=== PATIENT | male | born 1995 | race Caucasian/White ===

== ENCOUNTER 2023-01-22 04:33 | Emergency (ER) | payer SELFPAY ==
[2023-01-22 04:39] VITALS: BP 127/70; PULSE 110; RESP 18; TEMP 36.4; O2SAT 96; BMI 24.5
--- NOTE | 2023-01-22 05:12 | CT_ITS ---
EXAM: CT HEAD WITHOUT INTRAVENOUS CONTRAST CLINICAL INDICATION: head injury TECHNIQUE: Multiple axial images were obtained of the head without intravenous contrast. This CT exam was performed using one or more of the following dose reduction techniques: automated exposure control, adjustment of the mA and/or kV according to patient size, and/or use of iterative reconstruction technique. RADIATION DOSE: CTDIvol = 44.99 mGy, DLP = 846.73 mGy-cm COMPARISON: No relevant prior studies available. FINDINGS: BRAIN AND EXTRA-AXIAL SPACES: Unremarkable. No intra- or extra-axial hemorrhage. No evidence of acute infarct. No intracranial mass or mass effect. There is preservation of the aguilar/white matter interface. Posterior fossa structures are unremarkable. Ventricles are appropriate for age. No hydrocephalus. Basal cisterns are patent. BONES/JOINTS: Unremarkable. No discrete lytic or blastic abnormalities. SINUSES: Unremarkable as visualized. Clear. MASTOID AIR CELLS: Unremarkable. Clear. ORBITS: Visualized globes, extraocular muscles, optic nerves and retrobulbar fat appear unremarkable. CT/Brain/Head without Contrast IMPRESSION: Negative head/brain CT without intravenous contrast. Electronically Signed: Brad Caldewll MD at 5:55 EDT ,
[2023-01-22] MEDS: Diphth,Pertuss(Acell),Tet Vac 0.5 ML Vial IM (05:27)
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
[2023-01-22 06:16] VITALS: BP 110/51; PULSE 98; RESP 18; O2SAT 99
== END 2023-01-22 06:16 | disposition home or self-care (01) ==
PROVIDERS: Emergency Provider Emergency Medicine; Visit Provider Emergency Medicine
DX: S06.0X0A Concussion without loss of consciousness, initial encounter (principal); S00.03XA Contusion of scalp, initial encounter; S50.811A Abrasion of right forearm, initial encounter; S50.812A Abrasion of left forearm, initial encounter; S50.311A Abrasion of right elbow, initial encounter; S50.312A Abrasion of left elbow, initial encounter; S40.211A Abrasion of right shoulder, initial encounter; S00.01XA Abrasion of scalp, initial encounter; V86.66XA Passenger of dirt bike or motor/cross bike injured in nontraffic accident, initial encounter; Z23 Encounter for immunization
CPT/HCPCS: 70450; 90471; 90715; 99284

== ENCOUNTER 2023-08-05 00:52 | Emergency (ER) | payer SELFPAY ==
[2023-08-05 00:52] VITALS: BP 108/65; PULSE 98; RESP 18; TEMP 36.3; O2SAT 98
--- NOTE | 2023-08-05 00:56 | ED.VIS.FALL ---
HPI HPI - Fall History of Present Illness Chief Complaint: Fall Narrative Narrative: Presented after a fall at work. When I went to evaluate the patient, patient was no longer in his room. Nursing staff reports that the patient did not want to take a drug test and left without telling anyone. Patient was only here for approximately 35 minutes. PFSH PFSH Medical History no medical history Home Medications NK 01/22/23 [History Last Taken Unknown] Allergy/AdvReac Type Severity Reaction Status Date / Time No Known Allergies Allergy Verified 08/05/23 00:58 Social History Smoking Status: Never smoker EXAM Physical Exam Const Vital Signs: 08/05/23 00:52 Temperature 97.4 F L Temperature Source Temporal Pulse Rate 98 Respiratory Rate 18 Blood Pressure 108/65 Blood Pressure Mean 79 Pulse Ox 98 Oxygen Delivery Method Room Air Discharge Plan Triage Chief Complaint: Fall ED Provider: Provider,Ed Physician Dx/Rx/DC Orders Clinical Impression: Fall Prescriptions: No Action NK Primary Care Provider: Care Physician,No Primary Referrals: Care Physician,No Primary [Primary Care Provider] - Disposition Disposition: LEFT WITHOUT BEING SEEN
--- NOTE | 2023-08-05 01:32 | ED.RN ---
PT NOT IN ROOM, LEFT WITHOUT BEING SEEN
--- OUTSIDE RECORDS SUMMARY | 2023-08-05 01:34 | XMS RPT_ITS | CCD ---
Author Name Unknown Address [address] [place] [address] Organization [facility] Care Team Providers Care Blind Installer Name Role Phone PHYSICIAN, NONE Unavailable Unavailable LOPEZ, VU Unavailable Unavailable LOPEZ, VU Unavailable Unavailable Results Test Name Value Interpretation Reference Range Facil ity Encounters Encounter Date Encounter Type Care Provider Facility Start: 02-19-2017 End: 02-20-2017 Ambulatory NONE PHYSICIAN Facility:A Payers Date Payer Category Payer Unknown [id number] Summary Purpose Family History No Family History Records FoundNo Family History Records FoundNo Family History Records Found Advance Directives No Advanced Directives Records FoundNo Advanced Directives Records FoundNo Advanced Directives Records Found Additional Source Comments (unrecognized sect ion and content) No Status Records FoundNo Status Records FoundNo Status Records Found INFORMATION SOURCE (unrecogn ized section and content) DATE CREATED AUTHOR AUTHOR'S ORGANIZ ATION [facility]05/2019 [facility] DATE CREATED AUTHOR AUTHOR'S ORGANIZ ATION 01/20/2022 [facility] FOR RECORDS PERTAINING TO PATIENTS WHO ARE OR HAVE BEEN ENROLLED IN A CHEMICAL DEPENDENCY/SUBSTANCEABUSE PROGRAM, SOME INFORMATION MAY BE OMITTED. This clinical summary was aggregated from multiple sources. Caution should be exercised in using it in the provision of clinical care. This summary normalizes information from multiple sources, and as a consequence, information in this document may materially change the coding, format and clinical context of patient data. In addition, data may be omitted in some cases. CLINICAL DECISIONS SHOULD BE BASED ON THE PRIMARY CLINICAL RECORDS. [employer] provides no warranty or guarantee of the accuracy or completeness of information in this document.
== END 2023-08-05 01:30 | disposition left against medical advice (07) ==
DX: Z53.21 Procedure and treatment not carried out due to patient leaving prior to being seen by health care provider (principal)
CPT/HCPCS: 99282

== ENCOUNTER 2023-08-10 05:58 | Emergency (ER) | payer BC, SELFPAY ==
[2023-08-10 06:00] VITALS: BP 139/78; PULSE 92; RESP 16; TEMP 37; O2SAT 100; BMI 23.3
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
[2023-08-10 06:10] VITALS: BP 124/76; BP 126/90; BP 127/80; PULSE 63; PULSE 83; PULSE 85
--- OUTSIDE RECORDS SUMMARY | 2023-08-10 06:29 | XMS RPT_ITS | CCD ---
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 Name Role Phone PHYSICIAN, NONE Primary Care Unavailable MARIEL EDMONDSON Attending Unavailable PHYSICIAN, NONE Primary Care Physician Unavailab le Medications Current Medications Medication Drug Class(es) Dates Sig (Normalized) Sig (Original) Pharmacy See ORDER COMMENTS (1 source) Start: 02-19-2017 Pharmacy See ORDER COMMENTS Start Date: 02/19/17 Status: Ordered Problems Problem Classification Problem Date Documented Da te Episodic/Chronic Residual codes; unclassified (1 source) Edema 02-19-2017 Episodic Results Test Name Value Interpretation Reference Range Facil ity Vital Signs Date Time Vital Sign Value Performing Clinician Faci lity 08-05-2023 07:13-0500 Diastolic Blood Pressure Non-Invasive 72 mm[Hg] DR MARIEL EDMONDSON MD [facility] 08-05-2023 07:13-0500 Heart rate 76 /min DR MARIEL EDMONDSON MD [facility] 08-05-2023 07:13-0500 Respiratory rate 16 /min DR MARIEL EDMONDSON MD [facility] 08-05-2023 07:13-0500 Systolic Blood Pressure Non-Invasive 141 mm[Hg] DR MARIEL EDMONDSON MD [facility] 08-05-2023 02:55-0500 Body temperature 97.88 [degF] DR MARIEL EDMONDSON MD [facility] 08-05-2023 02:55-0500 Body weight 66.[address] MARIEL EDMONDSON MD [facility] 08-05-2023 02:55-0500 Diastolic Blood Pressure Non-Invasive 76 mm[Hg] DR MARIEL EDMONDSON MD [facility] 08-05-2023 02:55-0500 Heart rate 101 /min DR MARIEL EDMONDSON MD [facility] 08-05-2023 02:55-0500 Respiratory rate 18 /min DR MARIEL EDMONDSON MD [facility] 08-05-2023 02:55-0500 Systolic Blood Pressure Non-Invasive 130 mm[Hg] DR MAREIL EDMONDSON MD [facility] Encounters Encounter Date Encounter Type Care Provider Facility Start: 08-05-2023 End: 08-05-2023 Emergency department patient visit NONE PHYSICIAN Facility:A Start: 08-05-2023 End: 08-05-2023 Emergency department patient visit DR MARIEL EDMONDSON MD [facility] Procedures Date Procedure Procedure Detail Performing Clinician None (qualifier value) DR GAURAV EDMONDSON MD Payers Date Payer Category Payer Self-pay 1996 Unknown [id number] Social History Date Type Detail Facility Start: 10-26-2020 Tobacco smoking status Smoker (findi ng) [facility] Sex Assigned At Sex [facility] Functional Status Date Assessment Result Facility 08-05-2023 Functional Status Awake [facility] 08-05-2023 Functional Status Repositions self [facility] Mental Status Date Assessment Result Facility 08-05-2023 Mental Status Orientation Oriented x 4 [facility] 08-05-2023 Mental Status [facility] Discharge instructions 08-05-2023 Note Date & Type Note Facility 08-05-2023 Hospital Discharg e instructions Patient Education 08/05/2023 07:25:29 Blunt Abdominal Trauma Blunt Abdominal Trauma Your abdomen extends from just below your chest to the top of your pelvis. It contains a number of vital organs, including your spleen, liver, pancreas, and stomach. These organs can be injured by the impact from a car accident or fall. Injury from a force that doesn t break your skin to penetrate your body is known as blunt trauma. When to go to the emergency room (ER) Injury to your abdomen can be very serious. For that reason, a person with blunt abdominal trauma should be taken to the ER by trained medical personnel in an ambulance. The effects of blunt trauma often don t appear right away, so it s important to see a healthcare provider after a hard blow to the abdomen, even if you feel OK. What to expect in the ER Your breathing and pulse will be checked. You also will be examined carefully for injuries. Severe trauma may need surgery right away. Otherwise you will be watched closely for a time. You may also need to have one or more tests to find out the extent of your injuries. These may include: Blood or urine tests need a sample of the blood or urine to be taken and checked for problems. X-rays use radiation to take pictures of inside the body. It's mostly used to look for broken bones. CT scan combines X-rays and a computer. This gives a detailed picture that can show problems with organs. These include your kidneys, spleen, liver, and stomach. Ultrasound uses radio waves to make images of the organs in your abdomen. It can also rapidly identify internal bleeding if present. Diagnostic peritoneal lavage (DPL) involves inserting a needle and plastic catheter through the skin into your abdomen to check fluid from your abdomen for signs of blood (internal bleeding).This procedure is rarely, if ever, used anymore. Based on the test results, you may be admitted to the hospital. Or you may have further care in the ER. When to call your healthcare provider After treatment, call your healthcare provider right away if you notice any of these symptoms: Increased pain or swelling in your abdomen Nausea or vomiting Call 911 Call 911 or get immediate medical care if any of the following occur: Weakness or fainting Blood in your stool or urine 9927-2564 [employer]. [address] [place] [address], [place] [address]. All rights reserved. This information is not intended as a substitute for professional medical care. Always follow your healthcare professional's instructions. Follow Up Care 08/05/2023 02:55:04 With:[facility] ([facility]) Address: [address] [place] [phone] [facility] (1) When:2-4 days Comments:Return to ED if symptoms worsen With:NONE PHYSICIAN Address:Unknown When:2-4 days [facility] Emergency department Discharge summary 08-05-2023 Note Date & Type Note Facility 08-05-2023 Emergency departm ent Discharge summary Discharge Instructions Thank you for allowing [facility] to assist you with your healthcare needs. The following is important discharge information regarding your hospital visit. Diagnosis from Today's Visit Abdominal pain after fall 3ft from ladder Contusion of anterior abdominal wall What to Do Next Instructions from Your Care Team No qualifying data available. Post Acute Orders No qualifying data available. You Need to Schedule the Following Appointments Follow Up with [facility] ([facility]) When Within 2-4 days Why: Return to ED if symptoms worsen Where: [address] [place] [phone] [employer] (1) Follow Up with NONE PHYSICIAN When Within 2-4 days Allergies NKA Medications Please ask your primary doctor or pharmacist before taking any other medication not listed, including over the counter drugs, herbal medications, vitamins and or supplements as they may interact with your home medications. What When Instructions Last Dose Unchanged .PharmacyCommunication (Pharmacy See ORDER COMMENTS) Please take this list to your next doctor s visit. Bring all medications you take, including over the counter medications, herbals and other supplements with you to your doctor s visit. Patients and families are reminded to discard old lists and to update any records with all medication providers or retail pharmacies. Education Materials Blunt Abdominal Trauma Your abdomen extends from just below your chest to the top of your pelvis. It contains a number of vital organs, including your spleen, liver, pancreas, and stomach. These organs can be injured by the impact from a car accident or fall. Injury from a force that doesn t break your skin to penetrate your body is known as blunt trauma. When to go to the emergency room (ER) Injury to your abdomen can be very serious. For that reason, a person with blunt abdominal trauma should be taken to the ER by trained medical personnel in an ambulance. The effects of blunt trauma often don t appear right away, so it s important to see a healthcare provider after a hard blow to the abdomen, even if you feel OK. What to expect in the ER Your breathing and pulse will be checked. You also will be examined carefully for injuries. Severe trauma may need surgery right away. Otherwise you will be watched closely for a time. You may also need to have one or more tests to find out the extent of your injuries. These may include: Blood or urine tests need a sample of the blood or urine to be taken and checked for problems. X-rays use radiation to take pictures of inside the body. It's mostly used to look for broken bones. CT scan combines X-rays and a computer. This gives a detailed picture that can show problems with organs. These include your kidneys, spleen, liver, and stomach. Ultrasound uses radio waves to make images of the organs in your abdomen. It can also rapidly identify internal bleeding if present. Diagnostic peritoneal lavage (DPL) involves inserting a needle and plastic catheter through the skin into your abdomen to check fluid from your abdomen for signs of blood (internal bleeding).This procedure is rarely, if ever, used anymore. Based on the test results, you may be admitted to the hospital. Or you may have further care in the ER. When to call your healthcare provider After treatment, call your healthcare provider right away if you notice any of these symptoms: Increased pain or swelling in your abdomen Nausea or vomiting Call 911 Call 911 or get immediate medical care if any of the following occur: Weakness or fainting Blood in your stool or urine [phone] [employer]. [address] [place] [address]. All rights reserved. This information is not intended as a substitute for professional medical care. Always follow your healthcare professional's instructions. Additional Information VACCINATE! IT SAVES LIVES! Members of the community who have not yet received the COVID-19 vaccine and would like to receive it can visit one of [facility] vaccine clinics. There are many vaccine clinic locations within the [facility]. For locations and available times, please visit www.gettheshot.coronavirus.[place].gov/. It is important to note that some COVID mobile vaccine clinics are held outdoors and may be canceled in rainy or stormy conditions. To learn more about pediatric vaccinations (ages 5-11), we invite you to visit the [facility] webpage. [email or web address].[email or web address].org/pages/ 4920-Iuisk-Yjtwpjretlt-Frequently-Ask ed-Questions.html To learn more about the COVID-19 vaccine, we invite you to visit the CDC website for a list of frequently asked questions. https://www.cdc.gov/coronavirus/2019- ncov/vaccines/faq.html [email or web address] Patient Portal Access Instructions: Stay connected with your healthcare team and access your personal medical information anytime with the [email or web address] Patient Portal. If you would like a full copy of your medical records please contact the [facility] Medical Records Department Saturday through Saturday between 8a.m. and 4:30p.m. Please follow the directions below to access the portal: 1.Access the email account you provided upon registration to the [facility].2.Look for an invitation email from [facility].3.Open the email and access the invitation link: Accept Invitation to [email or web address].Fill in the required caballero to create your account. Sign into [email or web address].[email or web address] with your username and password that you created in the above steps to stay up to date. You can then view a summary of results, a summary of your visits, and the ability to download your summaries to your computer or send the information securely to a physician. Remember that your healthcare information is confidential, so carefully consider who you will allow to register on the [email or web address] Patient Portal for access to your information. You can also access the [email or web address] Patient Portal on the [employer]. Simply click on Health Records under Health Data and then click on the [employer] logo. HOW TO SAFELY DISPOSE OF PRESCRIPTION MEDICATIONS Please use one of the following methods to safely dispose of your unused medications. 1.Use a drug disposal kit: the drug disposal pouch allows you to safely discard your old and unused drugs. Ask your nurse to give you one when you are discharged.2.Visit a local take-back location: Many local pharmacies and police departments have programs that collect old and unwanted prescription drugs. Call your local pharmacy or go to http://liana/4D6Is1d to find one close to you.3.Make use of household items: Use cat litter or old coffee grounds to dispose medications if other options are not available. Mix your drugs with these household products, seal them in an airtight container and throw it into the garbage. Call [facility]: [phone] to be sure your drugs can be disposed of in this way. Some medicines may require a different approach.4.Never flush your medications down the toilet. IF YOU HAVE BEEN PRESCRIBED AN OPIOIDS FOR PAIN If you have been prescribed an opioid (such as hydrocodone, oxycodone or morphine), it is critical to understand the possible side effects and risks of opioid pain medications. Even when taken as directed, opioids can have several side effects including: Tolerance, meaning you might need to take more of a medication for the same pain relief. Nausea, vomiting and/or constipation. Sleepiness, dizziness, dry mouth, confusion, depression or itching. Physical dependence, meaning you have withdrawal symptoms when a medication is stopped ? this can develop within a few days. KNOW YOUR RESPONSIBILITIES It is important to know exactly how much and how often to take the opioid pain medications you are prescribed. Never take opioids in higher amounts or more often than prescribed. Do not combine opioids with alcohol or other drugs that cause drowsiness, such as benzodiazepines, also known as benzos, including diazepam and alprazolam, muscle relaxants or sleep aids. Never sell or share prescription opioids. This is illegal. Store opioids in a secure place and out of reach of others (including children, family, friends and visitors). The last page(s) of this document has been signed and retained as a CHART COPY Signatures Patient Education Materials Blunt Abdominal Trauma Medication Leaflets My discharge plan and instructions have been reviewed and explained to me and IMARQUIS BRANDON L understand my current condition and have read and understand these discharge instructions. I have received a written copy of the plan/instructions. If I have questions, I am aware that I should contact my doctor. 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 Multiplanar reformatted images are provided for review. Automated exposure control, iterative reconstruction, and/or weight based adjustment of the mA/kV was utilized to reduce the radiation dose to as low as reasonably achievable. COMPARISON: None. HISTORY: ORDERING SYSTEM PROVIDED HISTORY: Reason for Exam: fall from ladder, landed on stomach, abd pain abdominal pain FINDINGS: Lower Chest: No acute findings. Lower ribs are intact. Organs: The liver, biliary tree, pancreas, spleen, adrenal glands, and kidneys show no sign of traumatic injury or acute abnormality. There is a punctate nonobstructing stone in the right kidney and measures 2 mm. No ureteral stone or obstruction is present. GI/Bowel: There is no hemoperitoneum or free intraperitoneal air. Intestinal structures show no sign of acute abnormality. Pelvis: Urinary bladder is intact and has a normal appearance. There is no pelvic hematoma or other abnormal fluid collection. Peritoneum/Retroperitoneum: There is no retroperitoneal hematoma. Abdominal aorta and inferior vena cava are normal. Bones/Soft Tissues: Lumbar spine alignment is normal with no visible fracture. There is no pelvic or hip fracture. IMPRESSION: No acute intra-abdominal or pelvic abnormality. Punctate nonobstructing right renal stone. Interpreted by: Azar Prieto MD Preliminary Report By: Azar Prieto MD Electronically signed By Azar Prieto MD Dictated Date: 08/05/2023 6:36:02 AM Prelim Date: 08/05/2023 6:38:28 AM Sign Date: 08/05/2023 6:38:28 AM Ordering Provider: LUIS ARMANDO PANG [facility] Evaluation + Plan note Note Date & Type Note Facility Evaluation + Plan note No data available for this section [facility] Summary Purpose Family History No Family History Records FoundNo Family History Records FoundNo Family History Records Found No data available for this section Advance Directives No Advanced Directives Records FoundNo Advanced Directives Records FoundNo Advanced Directives Records Found Additional Source Comments (unrecognized sect ion and content) No Status Records FoundNo Status Records FoundNo Status Records Found INFORMATION SOURCE (unrecogn ized section and content) DATE CREATED AUTHOR AUTHOR'S ORGANIZ ATION 01/20/2022 [facility] nter DATE CREATED AUTHOR AUTHOR'S ORGANIZ ATION 08/05/2023 [facility] ([place]) Patient Care team informatio n (unrecognized section and content) Care Team Personnel Name: PHYSICIAN, NONE Position: Physician Member Role: Primary Care Physician Name: MD MARIEL EDMONDSON MD Position: ED Physician Member Role: Attending Physician Address: Address: [address] Name: LUIS ARMANDO PANG PA-C Position: [facility] 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 [facility] [facility]. provides no warranty or guarantee of the accuracy or completeness of information in this document.
[2023-08-10 06:33] VITALS: BP 119/87; PULSE 82
== END 2023-08-10 06:34 | disposition home or self-care (01) ==
PROVIDERS: Emergency Provider Emergency Medicine; Visit Provider Emergency Medicine
DX: R42 Dizziness and giddiness (principal); F17.290 Nicotine dependence, other tobacco product, uncomplicated; Y92.410 Unspecified street and highway as the place of occurrence of the external cause; V47.6XXA Car passenger injured in collision with fixed or stationary object in traffic accident, initial encounter
CPT/HCPCS: 99282

== ENCOUNTER 2023-11-10 13:03 | Emergency (ER) | payer BC, SELFPAY ==
[2023-11-10 13:04] VITALS: BP 139/91; PULSE 71; RESP 16; TEMP 36.6; O2SAT 99; BMI 22.3
--- NOTE | 2023-11-10 14:11 | CT_ITS ---
EXAM: CT CERVICAL SPINE WITHOUT INTRAVENOUS CONTRAST CLINICAL INDICATION: remote injury, BUE numbness, inc pain TECHNIQUE: Helically acquired images were obtained of the cervical spine without intravenous contrast. 2D reformatted images were reviewed. This CT exam was performed using one or more of the following dose reduction techniques: automated exposure control, adjustment of the mA and/or kV according to patient size, and/or use of iterative reconstruction technique. RADIATION DOSE: CTDIvol = 18.84 mGy, DLP = 405.85 mGy-cm COMPARISON: No relevant prior studies available. FINDINGS: VERTEBRAE: Unremarkable. No fracture. No traumatic subluxation. No discrete lytic or blastic abnormality. Normal alignment. Normal craniocervical junction and cervicothoracic junction. DISCS/SPINAL CANAL/NEURAL FORAMINA: Unremarkable. Disc heights are preserved. No critical stenosis. SOFT TISSUES: Unremarkable. No prevertebral soft tissue swelling. LYMPH NODES: Unremarkable. No cervical adenopathy. LUNG APICES: Unremarkable as visualized. Clear. CT/Spine Cervical without Contras IMPRESSION: No evidence of acute cervical spinal fracture or spondylolisthesis. Electronically Signed: Thien Swann MD at 15:15 EDT ,
--- NOTE | 2023-11-10 14:11 | CT_ITS ---
STUDY: CT BRAIN WITHOUT CONTRAST REASON FOR EXAM: Male, 28 years old. headache, vertigo TECHNIQUE: Transaxial CT imaging of the brain was performed without administration of intravenous contrast material. Individualized dose optimization techniques were used for this CT. COMPARISON: 01-22-23 FINDINGS: Normal calvarium. Normal soft tissues. Normal size ventricles and extra-axial spaces for the patient''s age. Normal white matter tracts of the cerebral hemispheres. Normal basal ganglia and thalami. Normal brainstem. Normal cerebellum. There is no intracranial hemorrhage. There are no findings of an acute ischemic infarction. There is sinus disease. ASPECTS 10 CT/Brain/Head without Contrast IMPRESSION: There are no acute intracranial findings. Electronically Signed: Thien Swann MD at 14:49 EDT ,
[2023-11-10] MEDS: Meclizine HCl 25 MG Tablet PO (14:23)
[2023-11-10 14:24] VITALS: BMI 22.3
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
[2023-11-10 15:03] VITALS: BP 115/60; PULSE 60; RESP 16; TEMP 36.6; O2SAT 96
[2023-11-10 15:58] LABS: Bedside Glucose 94 mg/dL (74-106)
[2023-11-10 16:44] VITALS: BP 98/68; PULSE 78; RESP 16; TEMP 36.6; O2SAT 99
== END 2023-11-10 16:45 | disposition home or self-care (01) ==
PROVIDERS: Emergency Provider Emergency Medicine; Visit Provider Emergency Medicine
DX: R42 Dizziness and giddiness (principal); R20.2 Paresthesia of skin; F17.290 Nicotine dependence, other tobacco product, uncomplicated; S13.9XXA Sprain of joints and ligaments of unspecified parts of neck, initial encounter
CPT/HCPCS: 70450; 72125; 82962; 99282

== ENCOUNTER 2023-11-28 02:42 | Emergency (ER) | payer BC, SELFPAY ==
[2023-11-28 02:42] VITALS: BP 130/77; PULSE 63; RESP 16; TEMP 36.3; O2SAT 98; BMI 22.7
--- NOTE | 2023-11-28 03:10 | CT_ITS ---
INDICATION: flank pain EXAMINATION: CT ABDOMEN AND PELVIS WITHOUT CONTRAST - CT Abdomen And Pelvis W/O Contrast Injection TECHNIQUE: Helically acquired images were obtained of the abdomen and pelvis without oral or IV contrast. A radiation dose optimization technique was used for this scan. IV Contrast dosage and agent: None. Oral contrast: None. RADIATION DOSAGE (If Supplied By Facility): CTDIvol = ( 6.05 ) mGy, DLP = ( 303.93 ) mGycm COMPARISON: No relevant prior comparison study available FINDINGS: LOWER CHEST: Lung bases are clear. No cardiomegaly or pericardial effusion. LIVER: Homogeneous. No focal mass. GALLBLADDER AND BILIARY TREE: No calcified gallstones. No gallbladder distension or wall edema. No intra- or extrahepatic biliary ductal dilation. PANCREAS: No focal cystic or solid mass. SPLEEN: Normal size without focal cystic or solid mass. ADRENAL GLANDS: No nodules. KIDNEYS AND URETERS: Normal renal size and position. No hydronephrosis. PERITONEUM: No ascites or free air. No other fluid collection. BOWEL: No evidence of acute appendicitis. No stomach or bowel distension. No focal inflammatory change. LYMPH NODES: No enlarged mesenteric or retroperitoneal lymph nodes. VESSELS: Aorta is non-dilated. URINARY BLADDER: Unremarkable. REPRODUCTIVE ORGANS: No pelvic masses. ABDOMINAL WALL: No discrete abdominal or pelvic wall hernia. BONES: No lytic or blastic abnormality. CT/Abdomen/Pelvis without Cont IMPRESSION: Negative CT abdomen and pelvis without oral or IV contrast. Electronically Signed: Sathish Rodriguez MD at 4:07 EDT ,
[2023-11-28] MEDS: Ketorolac 30 MG/ML Syringe IV (03:28)
[2023-11-28] MEDS: 0.9% Normal Saline (1000mL) 1,000 ML 999 ML IV (03:28)
[2023-11-28 03:35] LABS: Bacteria 0 SEEN /hpf (None Seen); Mucous, Urine 0 SEEN /hpf (<or=2+); Squamous Epithelial Cells - UA 0 SEEN /hpf (0-5); White Blood Cells 0 SEEN /hpf (0-5)
[2023-11-28 03:38] LABS: Absolute Lymphocyte Count 2.81 X10^3/uL (0.83-4.51); Absolute Neutrophil Count 3.5 X10^3/uL (2.0-7.7); Basophil# 0.08 X10^3/uL; Basophil% 1.1 % (0-1); Eosinophil# 0.13 X10^3/uL; Eosinophils% 1.9 % (0-5); Hematocrit 38.2 % (40-54); Hemoglobin 12.9 g/dL (13.0-16.5); Lymphocyte # 2.81 X10^3/ul (0.83-4.51); Lymphocyte % 40.3 % (19-41); Mean Corp Hgb Conc 33.8 g/dL (32-36); Mean Corpuscular Hgb 28.5 pg (27.0-32.0); Mean Corpuscular Volume 84.5 fL (80-94); Mean Platelet Vol. 9.8 fl (6.2-12.0); Monocyte# 0.45 X10^3/uL; Monocyte% 6.5 % (0-10); NRBC Flagged by Analyzer 0 % (0-5); Neutrophil # 3.48 X10^3/uL (2.7-7.7); Neutrophil % 49.9 % (47-70); Platelet Count 233 K/mm3 (150-450); RBC Distribution Width CV 12.2 % (11.6-14.6); RBC Distribution Width SD 37.2 fl (35.1-43.9); Red Blood Count 4.52 M/mm3 (4.6-6.2)
[2023-11-28 03:39] LABS: Color, Urine Yellow (Yellow); Glucose, Dipstick Normal (Normal); Ketone-Dipstick Negative (Negative); Leukocyte Esterase-Dipstick Negative /ul (Negative); Nitrite-Dipstick Negative (Negative); Occult Blood-Urine 25 /ul (Negative); Protein-Dipstick Negative (Negative); Urine Bilirubin Dipstick Negative (Negative); Urine Clarity Clear (Clear); Urine Urobilinogen Normal (Normal); Urine pH 6.5 (5.0 - 8.0)
[2023-11-28 03:57] LABS: Anion Gap 4 (5-15); BUN 14 mg/dL (7-18); Calcium,Total 8.9 mg/dL (8.5-10.1); Chloride 108 mmol/L (98-107); Creatinine, Serum 0.93 mg/dL (0.70-1.30); EST Glomerular Filtration Rate 103 mL/min (>60); Est Glom Filt Rate - Afr Amer 124 mL/min (>60); Estimated Creatinine Clearance 107.67 ml/min; Glucose 127 mg/dL (74-106); Potassium 3.3 mmol/L (3.5-5.1); Sodium Level 140 mmol/L (136-145)
[2023-11-28 03:58] LABS: Red Blood Cells-Urine 0-5 SEEN /hpf (0-5)
--- NOTE | 2023-11-28 04:52 | EX.ED.DYSGE1 ---
HPI History of Present Illness Chief Complaint: Flank Pain Informant: patient Narrative Narrative: Patient is a 28-year-old male with no significant past medical history. He states that today he noticed pain in the right inguinal/genital region that then progressed up the right side towards his back. He states that there was no excessive activity or recent trauma. He denies any dysuria or testicular pain or injury. He states there is been no penile discharge and he has no concern for STD. He states however that the pain was initially just all unbearable but then became more sharp and intense and secondary to this increased severity of the pain comes in for evaluation. PFSH PFS Medical History no medical history no medical history Home Medications NK 11/28/23 [History Last Taken Unknown] Allergy/AdvReac Type Severity Reaction Status Date / Time No Known Allergies Allergy Verified 11/28/23 02:45 Social History household members: significant other Smoking Status: Current every day smoker tobacco type: cigarettes and e-cigarettes ROS ROS ED Constitutional Constitutional ED: Denies chills or fever(s) ENT ENT ED: Denies sore throat Cardiovascular Cardiovascular: Denies chest pain Respiratory/Chest Respiratory/Chest: Denies cough or dyspnea Gastrointestinal Gastrointestinal: Reports abdominal pain; Denies diarrhea, nausea or vomiting Genitourinary Genitourinary ED: Denies dysuria, hematuria or urinary frequency Musculoskeletal Musculoskeletal: Reports back pain Integumentary Denies rash Neurologic Neurologic: Denies headache(s) Hematologic/Lymphatic Hematologic/Lymphatic: Denies easy bleeding or easy bruising EXAM Physical Exam Const Vital Signs: 11/28/23 02:42 11/28/23 04:58 Temperature 97.4 F L 97.4 F L Temperature Source Temporal Pulse Rate 63 68 Respiratory Rate 16 17 Blood Pressure 130/77 H 121/79 H Blood Pressure Mean 94 93 Pulse Ox 98 99 Oxygen Delivery Method Room Air Positive well nourished and well developed General Appearance ED: well developed; Negative for pallor HEENT HEENT Narrative: Normocephalic atraumatic Eyes PERRL and EOMs intact bilaterally General Eye ED: Negative for scleral icterus Neck supple Resp normal respiratory effort and clear to auscultation bilaterally Cardio regular rate and regular rhythm GI non-distended and no masses GI Narrative: There is mild pain on palpation along the right upper mid and lower abdomen without voluntary guarding or rigidity No pulsatile mass or fluid wave No peritoneal signs Auscultation: normoactive bowel sounds Palpation: soft Narrative: Normal circumcised male without blood or discharge from urethral meatus No testicular masses or swelling noted No abnormal lie to the testicles No overlying soft tissue changes to suggest Fabián's gangrene or soft tissue infection such as cellulitis or abscess There is a palpable bulge in the right spermatic cord/inguinal region concerning for reducible right inguinal hernia. Back/Spine Back/Spine Narrative: There is mild right-sided CVA pain noted Extremity normal to inspection Neuro oriented x3, CN's II-XII intact bilaterally and no sensory deficits noted Sensorium / Orientation: alert Motor Exam: strength 5/5 throughout Psych mental status grossly normal Skin no rashes or lesions noted, no wounds and skin turgor normal General Skin Exam: Negative for jaundice or pallor MDM MDM MDM Narrative Medical decision making narrative: Patient presented to ER with stable vitals and reported pain in the right sided abdomen and flank with radiation towards the groin. He states the pain began more in the inguinal groin region but there was no reported trauma or excessive activity and he had no concern for STD or UTI. Differential diagnosis is for UTI versus pyelonephritis versus STD versus kidney stone versus hernia. As he did have mild right-sided CVA pain I did elect to perform basic labs and a noncontrast CT scan. As there is no abnormal lie to the testicle or signs of infection I did not feel torsion was high in the differential did not feel the need to have an ultrasound performed at this time. Urine sample did show blood but no signs of infection and labs showed no signs of acute kidney injury or electrolyte abnormality. CT scan do not reveal any obvious findings such as stone. On reevaluation patient reports improvement and near resolution of his pain after Toradol. At this time there is concern he may have passed a kidney stone recently with his and improvement of pain and blood in the urine. As he does not have concern or bacteria noted on urine sample I do not feel there is need to send this for culture or treat for potential undiagnosed STD. The patient's hernia is reducible as well and since it is not incarcerated there is no need for emergent surgical or urology consultation. At this time patient is otherwise safe for discharge and can follow-up on an outpatient basis. History & Record Review Discussion w/independent historian: Patient Lab Data Attestation: I reviewed the patient's lab results. Labs: Laboratory Results - last 24 hr 11/28/23 11/28/23 02:50 02:56 WBC 7.0 RBC 4.52 L Hgb 12.9 L Hct 38.2 L MCV 84.5 MCH 28.5 MCHC 33.8 RDW Std Deviation 37.2 RDW Coeff of Manav 12.2 Plt Count 233 MPV 9.8 Immature Gran % (Auto) 0.300 Neut % (Auto) 49.9 Lymph % (Auto) 40.3 Bradley % (Auto) 6.5 Eos % (Auto) 1.9 Baso % (Auto) 1.1 H Absolute Neuts (auto) 3.5 Absolute Lymphs (auto) 2.81 Nucleated RBC % 0 Sodium 140 Potassium 3.3 L Chloride 108 H Carbon Dioxide 28.0 Anion Gap 4 L BUN 14 Creatinine 0.93 Estim Creat Clear Calc 107.67 Est GFR (MDRD) Af Amer 124 Est GFR (MDRD) Non-Af 103 BUN/Creatinine Ratio 15.0 Glucose 127 H Calcium 8.9 Urine Color Yellow Urine Clarity Clear Urine pH 6.5 Ur Specific [place] 1.010 Urine Protein Negative Urine Glucose (UA) Normal Urine Ketones Negative Urine Occult Blood 25 H Urine Nitrite Negative Urine Bilirubin Negative Urine Urobilinogen Normal Ur Leukocyte Esterase Negative Urine RBC 0-5 SEEN Urine WBC 0 SEEN Ur Squamous Epith Cells 0 SEEN Urine Bacteria 0 SEEN Urine Mucus 0 SEEN Radiography Diagnostic Testing: Clinical Impression(s) from Imaging Studies Abdomen/Pelvis CT 11/28/23 03:10 IMPRESSION: Negative CT abdomen and pelvis without oral or IV contrast. Electronically Signed: Sathish Rodriguez MD at 4:07 EDT Reading Location ID and State: [facility] / [place] Tel , Service support , Discharge Plan Triage Chief Complaint: Flank Pain ED Provider: Davie Saucedo Dx/Rx/DC Orders Clinical Impression: Acute right flank pain, Indirect right inguinal hernia Instructions: ED Flank Pain, Uncertain Cause, ED Hernia (Adult) Prescriptions: No Action NK Primary Care Provider: Care Physician,No Primary Referrals: Mario De Paz MD [Med Staff - Active Staff] - Care Physician,No Primary [Primary Care Provider] - Activity Restrictions/Additional Instructions: Your urine sample showed blood but no sign of infection and based on your exam and history I do feel you had a small kidney stone that he spontaneously passed. There is also a small right-sided hernia which could have been the cause of your pain. Follow-up with Dr. De Paz for repeat evaluation with potential urology referral and return to the ER should you have any further concerns or worsening of symptoms Disposition Disposition: Home, Self Care Discharge Date/Time: 11/28/23 04:59
[2023-11-28 04:58] VITALS: BP 121/79; PULSE 68; RESP 17; TEMP 36.3; O2SAT 99
== END 2023-11-28 04:59 | disposition home or self-care (01) ==
PROVIDERS: Emergency Provider Emergency Medicine; Visit Provider Emergency Medicine
DX: K40.90 Unilateral inguinal hernia, without obstruction or gangrene, not specified as recurrent (principal); F17.210 Nicotine dependence, cigarettes, uncomplicated; R10.9 Unspecified abdominal pain; F17.290 Nicotine dependence, other tobacco product, uncomplicated
CPT/HCPCS: 74176; 80048; 81001; 85025; 96361; 96374; 99282; J7030